=== PATIENT | female | born 1990 | race Caucasian/White ===

== ENCOUNTER → 2023-11-26 | Outpatient (REF) | payer MEDICAID | LOC: M SFHCWAGY 13:04 | PROVIDERS: ATTEND Specialist | DX: Z34.83 Encounter for supervision of other normal pregnancy, third trimester (principal) ==

== ENCOUNTER → 2023-12-17 | Outpatient (CLI) | payer OTHER, MEDICAID ==
[~2023-12-17] MED LIST: ACET-683 PO; IBUP80TA PO; PRENTAB9 PO
[2023-12-17 17:46] LABS: HEMOGLOBIN 12.4 g/dl (12.0-15.5); MEAN CORPUSCULAR HEMOGLOBIN 31.6 pg (27.0-33.0); MEAN CORPUSCULAR HGB CONC 33.5 g/dl (32.0-36.5); MEAN CORPUSCULAR VOLUME 94.1 fl (80.0-96.0); PLATELET COUNT, AUTOMATED 174 10^3/uL (150-450); RED BLOOD COUNT 3.93 10^6/uL (4.00-5.40); WHITE BLOOD COUNT 8.9 10^3/uL (4.0-10.0)
[2023-12-17 18:19] LABS: ALT/SGPT 12 U/L (7.0-40); AST/SGOT 17 U/L (<34); BILIRUBIN,TOTAL 0.4 MG/DL (0.3-1.2); CREATININE FOR GFR 0.59 MG/DL (0.55-1.30); GLOMERULAR FILTRATION RATE > 60.0 (>60); LDH LACTATE DEHYDROGENASE 186 U/L (120-246)
[2023-12-17 19:00] LABS: CREATININE,RANDOM URINE 31.4 MG/DL
[2023-12-17 19:05] LABS: TOTAL PROTEIN,RANDOM URINE < 6.0 MG/DL (0.0-14.0)
== END ==
LOC: M PLALAB 14:32
PROVIDERS: ATTEND Specialist
DX: Z34.83 Encounter for supervision of other normal pregnancy, third trimester (principal)

== ENCOUNTER 2023-12-18 01:31 | Inpatient (IN) | payer OTHER, MEDICAID ==
[2023-12-18] VITALS (13 sets, daily range): BP systolic 127–156; BP diastolic 72–85; O2SAT 96–97
[~2023-12-18] VITALS: Ht 177.8 cm; Wt 102.2 kg
[2023-12-18] MEDS ORDERED: PRENTAB9 PO (02:02)
[2023-12-18] MEDS ORDERED: HOME MED LIST COMPLETE! XX SCH (02:05)
[2023-12-18] MEDS ORDERED: OXYTOCIN DRIP 30 UNITS in IV 1 EA IV PRN (02:45)
[2023-12-18] MEDS ORDERED: TRANEXAMIC ACID INJection 1,000 MG in NS 100 ML IV PRN (02:45)
[2023-12-18] MEDS ORDERED: OXYTOCIN INJ 10UNITS/ML 1ML VIAL IM PRN (02:45)
[2023-12-18] MEDS ORDERED: CARBOPROST TROMETHAMINE 250 MCG/ML AMP IM PRN (02:45)
[2023-12-18] MEDS ORDERED: LIDOCAINE 1% MDV 20ML VIAL INFIL PRN (02:45)
[2023-12-18 03:12] LABS: HEMATOCRIT 34.7 % (36.0-47.0); HEMOGLOBIN 12.1 g/dl (12.0-15.5); MEAN CORPUSCULAR HEMOGLOBIN 31.8 pg (27.0-33.0); MEAN CORPUSCULAR HGB CONC 34.9 g/dl (32.0-36.5); MEAN CORPUSCULAR VOLUME 91.3 fl (80.0-96.0); PLATELET COUNT, AUTOMATED 168 10^3/uL (150-450); WHITE BLOOD COUNT 10.8 10^3/uL (4.0-10.0)
[2023-12-18 04:33] LABS: HIV 1&2 SCREEN NEGATIVE (NEGATIVE)
[2023-12-18 04:49] LABS: GC DNA AMPLIFICATION NEGATIVE (NEGATIVE)
[2023-12-18] MEDS ORDERED: LR 1,000 ML IV SCH (07:50)
[2023-12-18] MEDS ORDERED: OXYTOCIN DRIP 30 UNITS in IV 1 EA IV SCH (07:50)
[2023-12-18] MEDS: OXYTOCIN DRIP 30 UNITS in IV 1 EA IV PRN (13:09)
[2023-12-18] MEDS ORDERED: IBUPROFEN 600MG TAB PO PRN (13:10)
[2023-12-18] MEDS ORDERED: ACETAMINOPHEN TAB 650MG DOSE (2X325MG) PO PRN (13:10)
[2023-12-18] MEDS ORDERED: DIBUCAINE 1% OINTMENT 30GM TOP PRN (13:10)
[2023-12-18] MEDS ORDERED: DOCUSATE SODIUM 100MG CAPSULE PO PRN (13:10)
[2023-12-18] MEDS ORDERED: METHYLERGONOVINE MALEATE 0.2 MG TAB PO PRN (13:10)
[2023-12-18] MEDS ORDERED: RHOGAM 300MCG (1500IU) INJ IM SCH (13:10)
[2023-12-18] MEDS ORDERED: ACETAMINOPHEN 500 MG TAB PO PRN (13:10)
[2023-12-19 05:45] VITALS: BP 128/74; O2SAT 100
[2023-12-19] MEDS: PRENATAL VITAMINS CHEWABLE TABLET PO SCH (09:00)
[2023-12-19] MEDS: MEASLES,MUMPS,RUBELLA VACCINE INJ (MMR-II) SC.IMMUN ONE (09:06)
[2023-12-19] MEDS ORDERED: ACET-683 PO (18:01)
[2023-12-19] MEDS ORDERED: IBUP80TA PO (18:01)
[2023-12-19] MEDS: IBUPROFEN 800 MG TAB PO PRN (18:44)
== END 2023-12-19 19:50 | disposition home or self-care (01) | DRG 560 ==
LOC: M LDO 01:31 → M LDI 02:42 → M OBS 14:09
PROVIDERS: ADMIT Advanced Practice Midwife; ATTEND Advanced Practice Midwife
PROC: 10E0XZZ Delivery of Products of Conception, External Approach (ICD-10-PCS; principal; 2023-12-18)
DX: O34.211 Maternal care for low transverse scar from previous cesarean delivery (principal); O43.899 Other placental disorders, unspecified trimester; Z37.0 Single live birth; Z3A.39 39 weeks gestation of pregnancy